=== PATIENT | female | born 1980 | race Caucasian/White ===

== ENCOUNTER 2020-03-30 14:31 | Outpatient (CLI) | payer BC, SELFPAY ==
--- NOTE | ~2020-03-30 | XR_ITS ---
EXAMINATION: XR lg joint inject/asp w image DATE: 03/30/2020 16:04 INDICATION: Left ankle arthritis TECHNIQUE: A time-out was performed to verify the patient's name, date of , and procedure to b e performed. The procedure including the risks, benefits, and alternatives was discussed with the pat ient. Risks discussed included bleeding and infection. The patient understood the risks and agreed to proceed. The skin overlying the left ankle joint was prepped and draped in usual sterile fashion. Anesthetic was administered with 1% lidocaine subcutaneously. A 22 G needle was advanced under fluor oscopic guidance into the joint. Injection of 0.6 mL of Omnipaque 240 confirmed intra-articular posi tion of the needle. Subsequently, injectate consisting of 4 mL of a 1:1 mixture of 0.5% bupivacaine: 40 mg/mL Depo-Medrol for a total dosage of 80 mg Depo-Medrol was instilled. Washout of contrast and widening of the joint space was seen confirming intra-articular administration. The needle was remove d and the entry site was cleaned and dressed. There were no immediate complications. Fluoroscopy exp osure time was 0.2 minutes. The total number of images was 3. FINDINGS: Real-time fluoroscopy demonstrates the needle in the left tibiotalar joint. Patient's pain prior to procedure:4.5/10. Patient's pain following the procedure: 6/10. IMPRESSION: 1. Successful left ankle joint injection of local anesthetic and steroid with slight increase in the patient's presenting pain. Reviewed, dictated and finalized at location A. IMPRESSION: 1. Successful left ankle joint injection of local anesthetic and steroid with s light increase in the patient's presenting pain.
== END 2020-03-30 14:32 | disposition home or self-care (01) ==
LOC: CHSIMG 14:34
PROVIDERS: PCP Family Medicine; Visit Provider Orthopaedic Surgery
DX: M19.172 Post-traumatic osteoarthritis, left ankle and foot (principal)
CPT/HCPCS: 20610; 77002; J1030; Q9965

== ENCOUNTER 2020-08-06 08:22 | Outpatient (CLI) | payer BC, SELFPAY ==
--- NOTE | ~2020-08-06 | XR_ITS ---
XR ankle LT min 3V DATE: 08/06/2020 08:40 INDICATION: Ankle and foot pain TECHNIQUE: 3 weightbearing views COMPARISON: There is joint space narrowing consistent with osteoarthritis at the tibiotalar joint. No fracture or dislocation of the ankle or disruption of the ankle mortise is detected. FINDINGS: There is joint space narrowing consistent with osteoarthritis at the tibiotalar joint. No fracture or dislocation of the ankle or disruption of the ankle mortise is detected. 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
--- NOTE | ~2020-08-06 | XR_ITS ---
XR foot LT min 3V DATE: 08/06/2020 08:40 INDICATION: Left ankle and foot pain TECHNIQUE: 3 weightbearing views COMPARISON: None FINDINGS: There is joint space narrowing consistent with osteoarthritis at the tibiotalar joint. No fracture or dislocation, periosteal reaction or bone destruction. IMPRESSION: Tibiotalar osteoarthritis Reviewed, dictated and finalized at location A. IMPRESSION: Tibiotalar osteoarthritis
== END 2020-08-06 08:23 | disposition home or self-care (01) ==
PROVIDERS: PCP Family Medicine; Visit Provider Orthopaedic Surgery
DX: M25.572 Pain in left ankle and joints of left foot (principal); M79.672 Pain in left foot
CPT/HCPCS: 73610; 73630

== ENCOUNTER 2020-09-24 13:29 | Outpatient (CLI) | payer BC, SELFPAY ==
[2020-09-24 14:37] LABS: Influenza Control Valid (Valid); SARS-CoV-2 Ag Negative (Negative)
== END 2020-09-24 13:30 | disposition home or self-care (01) ==
LOC: CHSLAB 13:32
PROVIDERS: PCP Family Medicine; Visit Provider Family Medicine
DX: J00 Acute nasopharyngitis [common cold] (principal); Z20.828 Contact with and (suspected) exposure to other viral communicable diseases
CPT/HCPCS: 87081; 87426; 87804; 87880

== ENCOUNTER 2020-12-10 08:27 | Outpatient (CLI) | payer BC, SELFPAY ==
--- NOTE | ~2020-12-10 | XR_ITS ---
EXAMINATION: XR hand RT min 3V DATE: 12/10/2020 09:00 INDICATION: Pain and PD sized lump at the right fifth proximal phalanx TECHNIQUE: Posteroanterior, oblique and lateral views of the right hand were obtained. COMPARISON: None. FINDINGS: Alignment is normal. No fracture. Joint spaces are normal. No periosteal reaction, cortical erosion o r suspicious lytic or blastic bone lesions. Soft tissues are unremarkable. No abnormal masses, soft t issue calcification or radiopaque foreign bodies identified. IMPRESSION: 1. Negative right hand radiographs. Reviewed, dictated and finalized at location B. LE ARCHITECT
== END 2020-12-10 08:28 | disposition home or self-care (01) ==
PROVIDERS: PCP Family Medicine; Visit Provider Orthopaedic Surgery
DX: M79.641 Pain in right hand (principal)
CPT/HCPCS: 73130

== ENCOUNTER 2020-12-14 16:41 | Outpatient (CLI) | payer BC, SELFPAY ==
[2020-12-17 18:03] LABS: SARS-CoV-2 RNA PCR Negative
== END 2020-12-14 16:42 | disposition home or self-care (01) ==
LOC: CHSLAB 16:45
PROVIDERS: PCP Family Medicine; Visit Provider Orthopaedic Surgery
DX: R22.31 Localized swelling, mass and lump, right upper limb (principal); M12.572 Traumatic arthropathy, left ankle and foot; Z20.822 Contact with and (suspected) exposure to COVID-19
CPT/HCPCS: C9803; U0003; U0005

== ENCOUNTER 2020-12-20 00:35 | Day surgery (SDC) | payer BC, SELFPAY ==
[2020-12-12 15:00] VITALS: BMI 35.0
--- NOTE | 2020-12-19 13:33 | WPDANESEPPF ---
Anes - Initial Pre Proc Eval Procedure: Operation Date: 12/20/20 12:30 Proposed Procedures p Excision Mass Right Index Finger, - Daron Russell MD s Injection Left Ankle - Daron Russell MD Date/Time: 12/19/20 13:33 Surgeon: Daron Russell MD Pre Op Diagnosis: right index finger mass, left ankle arthritis Patient Data Age: 40 Gender: F Height: 1.57 m Weight: 87 kg Allergies Allergy/AdvReac Type Severity Reaction Status Date / Time morphine Allergy Mild Nausea and Verified 12/12/20 15:22 Vomiting, RASH pantoprazole Allergy Rash Verified 12/12/20 14:56 codeine AdvReac Mild Nausea and Verified 12/12/20 14:56 Vomiting oxycodone AdvReac Mild Headache Verified 12/12/20 14:56 Penicillins AdvReac Mild Nausea and Verified 12/12/20 14:56 Vomiting Home Medications Medication Instructions Recorded Confirmed Type alprazolam 0.5 mg PO TID PRN 12/12/20 12/12/20 History cholecalciferol (vitamin D3) 25 mcg PO DAILY 12/12/20 12/12/20 History [Vitamin D3] desogestrel-ethinyl estradiol 1 tablet PO DAILY 12/12/20 12/12/20 History [Velivet Triphasic Regimen (28)] famotidine 40 mg PO BID 12/12/20 12/12/20 History Patient hx anesthesia problems: none Family hx anesthesia problems: none PMFSH Past Medical History Medical History (Updated 12/19/20 @ 13:33 by Tarik Travis MD) Abdominal pain Anxiety Diarrhea GERD (gastroesophageal reflux disease) History of stomach ulcers IBS (irritable bowel syndrome) Mass of finger of right hand Obesity Traumatic arthritis of left ankle Unintentional weight loss Family History Family History Father Diabetes mellitus Family history of elevated blood lipids Acute myocardial infarction Grandparent Acute myocardial infarction Carcinoma of colon Family history of malignant neoplasm of breast Mother Family history of malignant neoplasm Other Family history of type 1 diabetes mellitus Hypertension Social History Social History Smoking packs per day: 1 Smoking cigarettes per day: 20.0 Years smoked: 15 Smoking pack-years: 15.00 Smoking end date: 04/11/04 Alcohol intake: current Substance use: never Living arrangements: with family Additional living arrangements comments: AND CHILD Spiritual care concerns: No Anes - Eval Final PreProcedure Day of Procedure 12/19/20 13:33 Patient weight: obese Heart: regular rate and rhythm Lungs: clear to auscultation and normal air movement Airway: Mallampati scale class II Neurological: alert and oriented Last oral intake: >/= 8 hours ASA classification: II Emergent: no Anesthetic plan: proceed Anesthesia type and monitoring: general GIVS Informed Consent: The patient's anesthetic plan and its attendant risks and benefits were discussed with the patient/family/POA. Questions were solicited and answers provided to the satisfaction of the patient/family/POA.
--- NOTE | 2020-12-20 07:19 | WPDHPUPDATE1 ---
History and Physical Update Update Date/Time: 12/20/20 07:19 History and Physical has been reviewed, including an updated exam of the patient. There are NO changes in the patient's condition. Covid test negative. Risks, benefits, and alternatives have been discussed and questions answered. Patient agrees to proceed with procedure.
[2020-12-20 11:00] VITALS: BP 139/78; PULSE 86; RESP 18; TEMP 36.8; O2SAT 99
[2020-12-20] MEDS: LACTATED RINGERS 1,000 ML 30 ML IV CONT ×2 (11:12→12:42)
[2020-12-20] MEDS: KETOROLAC 15 MG/ML VIAL (*BKC) IV PUSH (11:13)
[2020-12-20] MEDS: ACETAMINOPHEN 500 MG TABLET 1000 MG PO (11:13)
[2020-12-20] MEDS: ceFAZolin 2 GM/D5W 50 ML 2 GM/50 ML BAG IVPB (11:50)
[2020-12-20] MEDS: BUPIVACAINE HCL 0.5% PF 30 ML VIAL INFILTRATE (12:04)
[2020-12-20] MEDS: methylPREDNISolone ACETATE 40 MG/ML VIAL IM (12:16)
[2020-12-20 12:42] VITALS: BP 112/64; PULSE 99; RESP 15; O2SAT 100
--- NOTE | 2020-12-20 12:55 | P.OP_ITS ---
Procedure Note - Detailed Date of procedure: 12/20/20 Pre-op diagnosis: right index finger mass, left ankle arthritis Post-op diagnosis: same Procedure performed: Excision of mass right index finger, injection cortisone left ankle Description of procedure: Indications: Patient is a 40-year-old woman with a right index finger mass which is enlarging in size. 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 She desires operative removal. She also has a history of posttraumatic arthritis left ankle and would like to proceed with cortisone injection. What was done: Patient identified in the preoperative holding. Informed consent given. Operative extremity marked. Patient received intravenous antibiotics. Patient brought to the operating room where underwent general anesthetic by anesthesia team. Positioned supine on operating room table. Time-out performed confirming the patient, site of the surgery and the plan. Right hand prepped draped usual state sterile surgical fashion using ChloraPrep skin solution. Hand was exsanguinated and Esmarch was wrapped at the wrist for a tourniquet. Local anesthetic with 0.5% Marcaine plain in subcutaneous tissue. The v-shaped incision was then made at the flexion crease at the base of the index finger and extending over the mass with a 15 blade knife. Hemostasis controlled with bipolar. Blunt dissection around the mass which was located on the sheath of the flexor tendon. This was freed up from surrounding soft tissue and removed in unit. This was passed off as specimen. Inspection of the flexor tendon noted partial tear on the radial side of the flexor profundus. Four 0 Monocryl used to repair the partial tear. Wound thoroughly irrigated subcutaneous tissue repaired with 4 0 Monocryl interrupted suture and skin repaired with 4 nylon interrupted suture. Sterile dressing applied. Tourniquet released. Left ankle then addressed. Anterior portion sterilized with alcohol prep solution. 22 gauge needle used to penetrate the tibiotalar joint from the anteromedial aspect. Injection of 40 mg Depo-Medrol and 2 cc of 0.25% Marcaine plain. Sterile dressing applied. The patient was then woken from anesthesia, extubated and taken to the recovery room in stable condition. All sponge, needle, instrument counts were correct at the end of the case. Anesthesia: MAC Surgeon: Daron Russell MD Implementation Consultant: mri assistant Estimated blood loss (mL): 2 Tourniquet time (min): 30 Drains: No Packing: No Pathology: yes (Right index finger mass) Complications: None Disposition: PACU Findings: 3 mm round spherical mass on the sheath of the flexor tendon right index finger.
[2020-12-20 13:12] VITALS: BP 112/62; PULSE 100; RESP 15
[2020-12-20 13:30] VITALS: BP 127/67; PULSE 100; RESP 15
== END 2020-12-20 13:40 | disposition home or self-care (01) ==
PROVIDERS: PCP Family Medicine; Visit Provider Orthopaedic Surgery
PROC: (CPT 26160; principal; 2020-12-20 12:30)
PROC: (CPT 26160; 2020-12-20 12:30)
DX: M67.441 Ganglion, right hand (principal); M19.072 Primary osteoarthritis, left ankle and foot; R22.31 Localized swelling, mass and lump, right upper limb; F41.9 Anxiety disorder, unspecified; K21.9 Gastro-esophageal reflux disease without esophagitis; K58.9 Irritable bowel syndrome, unspecified; E66.9 Obesity, unspecified; Z68.35 Body mass index [BMI] 35.0-35.9, adult; F17.210 Nicotine dependence, cigarettes, uncomplicated
CPT/HCPCS: 26160; 20605; 88304; A9270; J0690; J1030; J1040; J1885; J2250; J2704; J3010; J7120

== ENCOUNTER 2021-03-20 17:37 | Outpatient (CLI) | payer BC, SELFPAY ==
[2021-03-20 18:42] LABS: SARS-CoV-2 RNA PCR Negative (Negative)
== END 2021-03-20 17:38 | disposition home or self-care (01) ==
LOC: CHSLAB 17:39
PROVIDERS: PCP Family Medicine; Visit Provider Family Medicine
DX: R11.10 Vomiting, unspecified (principal); R19.7 Diarrhea, unspecified; Z20.822 Contact with and (suspected) exposure to COVID-19
CPT/HCPCS: C9803; U0003; U0005

== ENCOUNTER 2021-04-01 12:21 | Outpatient (CLI) | payer BC, SELFPAY ==
--- NOTE | ~2021-04-01 | XR_ITS ---
EXAMINATION: XR md joint inject/asp w image DATE: 04/01/2021 13:19 INDICATION: Ankle arthritis with chronic pain TECHNIQUE: A time-out was performed to verify the patient's name, date of , and procedure to b e performed. The procedure including the risks, benefits, and alternatives was discussed with the pat ient. Risks discussed included bleeding and infection. The patient understood the risks and agreed to proceed. The skin overlying the left tibiotalar joint was prepped and draped in usual sterile fashi on. Anesthetic was administered with 1% lidocaine subcutaneously. A 22 G needle was advanced under fluoroscopic guidance into the joint. Injection of 1 mL of Omnipaque 240 confirmed intra-articular p osition of the needle. Subsequently, injectate consisting of 3 mL of a 2:1 mixture of 0.5% Marcaine: 80 mg/mL Depo-Medrol for a total dose of 80 mg Depo-Medrol was instilled. Washout of contrast was se en confirming intra-articular administration. The needle was removed and the entry site was cleaned a nd dressed. There were no immediate complications. Fluoroscopy exposure time was 0.2 minutes. The to dina number of images was 1. FINDINGS: Real-time fluoroscopy demonstrates the needle in the left tibiotalar joint. Patient's pain prior to procedure:04/20. Patient's pain following the procedure: 04/20. IMPRESSION: 1. Left tibiotalar joint injection of local anesthetic and steroid with no change in the patient's pr esenting pain. Reviewed, dictated and finalized at location A. IMPRESSION: 1. Left tibiotalar joint injection of local anesthetic and steroid with no stoddard ge in the patient's presenting pain.
== END 2021-04-01 12:22 | disposition home or self-care (01) ==
PROVIDERS: PCP Family Medicine; Visit Provider Orthopaedic Surgery
DX: M19.172 Post-traumatic osteoarthritis, left ankle and foot (principal)
CPT/HCPCS: 20605; 77002; J1040; Q9966

== ENCOUNTER 2021-09-17 09:31 | Outpatient (CLI) | payer BC, SELFPAY ==
[2021-09-17 10:31] LABS: SARS-CoV-2 RNA PCR Negative (Negative)
== END 2021-09-17 09:32 | disposition home or self-care (01) ==
LOC: CHSLAB 09:33
PROVIDERS: PCP Family Medicine; Visit Provider Family Medicine
DX: Z20.822 Contact with and (suspected) exposure to COVID-19 (principal)
CPT/HCPCS: C9803; U0003; U0005

== ENCOUNTER 2022-02-14 08:06 | Outpatient (CLI) | payer OTHER, SELFPAY ==
--- NOTE | ~2022-02-14 | XR_ITS ---
EXAMINATION: XR md joint inject/asp w image DATE: 02/14/2022 09:22 INDICATION: Left ankle arthritis TECHNIQUE: A time-out was performed to verify the patient's name, date of , and procedure to b e performed. The procedure including the risks, benefits, and alternatives was discussed with the pat ient. Risks discussed included bleeding and infection. The patient understood the risks and agreed to proceed. The skin overlying the anterior left ankle joint was prepped and draped in usual sterile f ashion. Anesthetic was administered with 1% lidocaine subcutaneously. A 25 G needle was advanced un sonia fluoroscopic guidance into the joint. Injection of 1 mL of Omnipaque 240 confirmed intra-articul ar position of the needle. Subsequently, injectate consisting of 4 mL of a 1:1 mixture of 0.5% bupiv acaine: 40 mg/mL Depo-Medrol for a total dosage of 80 mg Depo-Medrol was instilled. Washout of contra st was seen confirming intra-articular administration. The needle was removed and the entry site was cleaned and dressed. There were no immediate complications. Fluoroscopy exposure time was 0.2 minute s. The total number of images was 2. FINDINGS: Real-time fluoroscopy demonstrates the needle in the left tibiotalar joint. Patient's pain prior to procedure:04/20. Patient's pain following the procedure: 04/20. IMPRESSION: 1. Successful left ankle joint injection of local anesthetic and steroid with no change in the patien t's presenting pain. Reviewed, dictated and finalized at location A. IMPRESSION: 1. Successful left ankle joint injection of local anesthetic and steroid with n o change in the patient's presenting pain.
== END 2022-02-14 08:07 | disposition home or self-care (01) ==
LOC: CHSIMG 08:11
PROVIDERS: PCP Family Medicine; Visit Provider Orthopaedic Surgery
DX: M13.872 Other specified arthritis, left ankle and foot (principal)
CPT/HCPCS: 20605; 77002; J1030; Q9965

== ENCOUNTER 2022-06-08 16:58 | Emergency (ER) | payer OTHER, SELFPAY ==
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
[2022-06-08 17:00] VITALS: BP 142/82; PULSE 99; RESP 20; TEMP 36.8; O2SAT 99
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
[2022-06-08] MEDS: traMADol HCL (*CRX) 50 MG TABLET 100 MG PO ×2 (17:39→19:31)
[2022-06-08 18:00] VITALS: BP 136/84; PULSE 84; RESP 16; TEMP 36.4; O2SAT 100
[2022-06-08] MEDS: TETANUS,DIPHTHERIA,AC PERTUSSIS ADULT 0.5 ML (ADACEL) IM (18:36)
[2022-06-08] MEDS: ONDANSETRON HCL ODT 4 MG TABLET PO (18:40)
[2022-06-08 19:20] LABS: Pregnancy On Board Control Positive; Urine Pregnancy Test Negative
[2022-06-08 19:40] VITALS: BP 122/80; PULSE 66; RESP 16; TEMP 36.6; O2SAT 99
== END 2022-06-08 19:46 | disposition home or self-care (01) ==
PROVIDERS: Emergency Provider Family Medicine; PCP Family Medicine
DX: S52.502A Unspecified fracture of the lower end of left radius, initial encounter for closed fracture (principal); V86.99XA Unspecified occupant of other special all-terrain or other off-road motor vehicle injured in nontraffic accident, initial encounter
CPT/HCPCS: 29105; 70450; 70486; 72125; 73030; 73080; 73130; 73560; 73610; 81025; 90471; 90715; 99284; A4565; A9270

== ENCOUNTER 2022-06-12 01:31 | Day surgery (SDC) | payer OTHER, BC, SELFPAY ==
[2022-06-11 14:27] VITALS: BMI 36.6
--- NOTE | 2022-06-11 14:37 | PC.NURSE ---
Report to the Outpatient Waiting Room, entrance under the green pavilion located off [facility], at time 0930 on date 06/12/22. OR Time: 1130. - You and your visitor will be asked to self-screen and do not enter if you have any COVID symptoms. - Only one visitor and NO children visitors are allowed at this time. - The patient visitor is requested to leave or wait in car when not with patient due to restrictions. - A mask is required within the hospital. Patients may have clear liquids (water, carbonated beverages, clear teas, apple juice) until 3 hours prior to surgery with a maximum of 20 ounces. - No food from midnight until time of surgery Take the following medications with a SIP of water the morning of surgery: XANAX, PAIN PILL (IF NEEDED) Medications to discontinue per physician: N/A Date to take last dose: N/A Please no make-up, nail arabic, hairspray, perfume, deodorant, or body powder the day of surgery. No jewelry (including any body piercings) or valuables the day of surgery, leave them at home. Please take a shower or bath the night before, or the morning of, surgery with an antibacterial soap. Wear comfortable, loose fitting clothing. - Jewelry must be removed prior to entering the operating room. Rings and piercings that are not removed may be cut off. - The hospital will not accept responsibility for valuables. - Please leave all valuables, including medications, at home the day of surgery. If you are going home after surgery, a licensed hazmat cdl driver must drive you home. - NO public transportation without another adult. - We recommend that an adult stay with you for 24 hours following discharge. - We also recommend that you do not drive, make important decision, drink alcoholic beverages, or take any drugs that were not prescribed by your health care provider for at least 24 hours after your discharge time. Follow any additional instructions given to you from your surgeon. If you or anyone in your household have experienced Covid symptoms in the past week, please notify your surgeon or the nurse liaison at the phone number below for possible testing. Telephone instructions given to PT - JARED ALVARENGA and asked if any additional questions and then verbalized understanding. Patient advised to call surgeon office or pre surgery nurse liaison [phone] if any additional questions.
[2022-06-12] VITALS (11 sets, daily range): BP systolic 117–142; BP diastolic 63–99; PULSE 70–98; RESP 12–19; TEMP 36.2–36.4; O2SAT 98–100; BMI 36.2
--- NOTE | ~2022-06-12 | XR_ITS ---
XR surgery orthopedic DATE: 06/12/2022 12:14 INDICATION: Left wrist pinning TECHNIQUE: 5 spot C-arm images 44 seconds fluoroscopy time 6.6334 cGy cm 2 total DAP COMPARISON: 06/11/2022 left wrist FINDINGS: 3 K wires are placed into the distal radius, 2 extending proximally through the radial styl oid process obliquely medially, 1 extending distally obliquely through the distal radial shaft into t he very distal medial aspect of the radius. There is near-anatomic position and alignment of the comminuted intra-articular radial fracture, with mild dorsal inclination of the distal radial and annular surface. IMPRESSION: K wire fixation of comminuted intra-articular fracture distal radius Reviewed, dictated and finalized at [facility]. Reviewed, dictated and finalized at location B. IMPRESSION: K wire fixation of comminuted intra-articular fracture distal radiu s
--- NOTE | 2022-06-12 07:13 | WPDHPUPDATE1 ---
History and Physical Update Update Date/Time: 06/12/22 07:13 History and Physical has been reviewed, including an updated exam of the patient. There are NO changes in the patient's condition. Risks, benefits, and alternatives have been discussed and questions answered. Patient agrees to proceed with procedure.
--- NOTE | 2022-06-12 09:57 | ECG_ITS ---
Measurements Intervals [place] Rate: 88 P: 49 NH: 156 QRS: -7 QRSD: 89 T: 41 QT: 339 QTc: 411 Interpretive Statements SINUS RHYTHM LOW QRS VOLTAGE IN PRECORDIAL LEADS LEFT VENTRICULAR HYPERTROPHY BASELINE ARTIFACT- II, III, AVR, AVL, AVF, V1-V6 BORDERLINE ECG NO PREVIOUS ECG AVAILABLE FOR COMPARISON Electronically Signed On 06-12-2022 12:00:45 CDT by Mars Calabrese D.O.
[2022-06-12] MEDS: ACETAMINOPHEN 500 MG TABLET 1000 MG PO (10:46)
[2022-06-12] MEDS: LACTATED RINGERS 1,000 ML 30 ML IV CONT ×2 (10:55→12:57)
[2022-06-12] MEDS: fentaNYL CITRATE INJ (*CRX) 100 MCG/2 ML VIAL 50 MCG IV PUSH (11:02)
--- NOTE | 2022-06-12 11:10 | SUR.PREOP ---
1110- Notified Dr. Russell patient unable to receive NSAID's. Toradol not given to patient and MD aware.
[2022-06-12] MEDS: SCOPOLAMINE 1.5 MG PATCH TRANSDERM ×2 (11:16→13:29)
--- NOTE | 2022-06-12 11:20 | SUR.PREOP ---
1120- Patient's splint removed in pre op room. Shaving deferred due to pain control.
[2022-06-12] MEDS: ceFAZolin 2 GM/D5W 50 ML 2 GM/50 ML BAG IVPB (11:27)
--- NOTE | 2022-06-12 12:25 | W.PM.PROC2 ---
Procedure Note - Detailed Date of Procedure 06/12/22 Pre-op Diagnosis left wrist fracture Post-op Diagnosis Same Procedure Performed Close reduction left distal radius fracture with percutaneous pin fixation. 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 Distal radius fracture with comminution and intra-articular extension. Presents for operative treatment. She has declined open reduction internal fixation but is consented for closed reduction with percutaneous pin fixation. Findings Comminuted intra-articular distal radius fracture. Description of Procedure Indications: Patient is a 42-year-old woman who injured her left wrist from a 4 eason accident. Presents for reduction. She has declined internal fixation due to previous problem she had with other internal fixation but has consented to have percutaneous pin fixation. What was done: Patient identified in the preoperative holding. Informed consent given. Operative extremity marked. Patient received intravenous antibiotics. Patient brought to the operating room where underwent general anesthetic by anesthesia team. Positioned supine on operating room table. Time-out performed confirming the patient, site of the surgery and the plan. Left wrist prepped draped usual sterile surgical fashion using ChloraPrep skin solution. Closed reduction performed and verified with image intensification. 0.062 in K-wire used and placed percutaneously. Two of these placed from the radial styloid across the fracture in a retrograde fashion. One pin placed from the radial diaphysis across the fracture antegrade fashion. Image intensification confirm reduction and placement of the pins. Wrist was gently taken through range of motion under fluoroscopy and noted to be stable. Pins were bent and cut outside the skin. Sterile dressing applied. The patient was then woken from anesthesia, extubated and taken to the recovery room in stable condition. All sponge, needle, instrument counts were correct at the end of the case. Implants 0.062 in K-wire x3 Estimated Blood Loss 1 Tourniquet Time 0 Drains No Packing No Pathology None sent Complications None Condition Stable Disposition PACU
[2022-06-12] MEDS: fentaNYL CITRATE INJ (*CRX) 100 MCG/2 ML VIAL 25 MCG IV PUSH ×4 (12:35→12:41)
[2022-06-12] MEDS: HYDROmorphone HCL INJ (*CRX) 1 MG/ML SYR IV PUSH ×2 (12:48→13:00)
[2022-06-12] MEDS: ONDANSETRON INJ 4 MG/2 ML VIAL IV PUSH (13:10)
[2022-06-12] MEDS: diphenhydrAMINE HCl INJ 50 MG/ML VIAL 25 MG IV PUSH (13:30)
== END 2022-06-12 14:53 | disposition home or self-care (01) ==
PROVIDERS: PCP Family Medicine; Visit Provider Orthopaedic Surgery
PROC: (CPT 25606; principal; 2022-06-12 11:30)
DX: S52.572A Other intraarticular fracture of lower end of left radius, initial encounter for closed fracture (principal); V86.55XA Driver of 3- or 4- wheeled all-terrain vehicle (ATV) injured in nontraffic accident, initial encounter; K21.9 Gastro-esophageal reflux disease without esophagitis; K58.9 Irritable bowel syndrome, unspecified
CPT/HCPCS: 25606; 93005; 99199; A9270; C1713; J0690; J1100; J1170; J1200; J2250; J2405; J2704; J3010; J7120

== ENCOUNTER 2022-08-04 08:20 | Outpatient (CLI) | payer OTHER, SELFPAY ==
--- NOTE | ~2022-08-04 | XR_ITS ---
EXAMINATION: XR wrist LT min 3V DATE: 08/04/2022 08:36 INDICATION: Left distal radius fracture follow-up TECHNIQUE: Posteroanterior, ulnar deviation, oblique, and lateral views of the left wrist were obtain ed. COMPARISON: 07/15/2022 FINDINGS: The cast and percutaneous pins have been removed. There is a healing fracture of the distal radius in essentially anatomic alignment. No additional fracture is identified. There is soft tissue swelling of the wrist. IMPRESSION: 1. Healing fracture of the distal radius with interval removal of the cast and percutaneous pins. Reviewed, dictated and finalized at location A.
== END 2022-08-04 08:21 | disposition home or self-care (01) ==
PROVIDERS: PCP Family Medicine; Visit Provider Orthopaedic Surgery
DX: Z47.89 Encounter for other orthopedic aftercare (principal)
CPT/HCPCS: 73110

== ENCOUNTER 2022-10-08 00:55 | Day surgery (SDC) | payer OTHER, SELFPAY ==
[2022-09-23 09:30] VITALS: BMI 35.9
--- NOTE | 2022-09-23 09:50 | PC.NURSE ---
Report to the Outpatient Waiting Room, entrance under the green pavilion located off [facility], at time __8:30AM on date __10/08/22 . Planned Procedure Time: __10:30AM . Time changes happen often and if your time is changed the preop area will call you the afternoon before. - You and your visitor will be asked to self-screen and do not enter if you have any COVID symptoms. - Only one visitor is requested with a max of two and NO children visitors are allowed at this time. - The patient visitor may be requested to leave or wait in car when not with patient due to distancing restrictions. - A mask is optional within the hospital. Patients may have clear liquids (water, carbonated beverages, clear teas, apple juice) until 3 hours prior to surgery with a maximum of 20 ounces. - No food from midnight until time of surgery Take the following medications with a SIP of water the morning of surgery: ___ALPRAZOLAM NEEDED, ALBUTEROL INHALER NEEDED Medications to discontinue per physician ____HOLD ALL VITAMINS/SUPPLEMENTS 3 DAYS PRE-OP Date to take last dose___10/04/22 Please no make-up, nail [place] islander, hairspray, perfume, deodorant, or body powder the day of surgery. No jewelry (including any body piercings) or valuables the day of surgery, leave them at home. Please take a shower or bath the night before, or the morning of, surgery with an antibacterial soap. Wear comfortable, loose fitting clothing. Children are encouraged to wear pajamas. - Jewelry must be removed prior to entering the operating room. Rings and piercings that are not removed may be cut off. - The hospital will not accept responsibility for valuables. - Please leave all valuables, including medications, at home the day of surgery. If you are going home after surgery, a licensed emergency medical technician/driver must drive you home. - NO public transportation without another adult if you receive anesthesia. - We recommend that an adult stay with you for 24 hours following discharge. - We also recommend that you do not drive, make important decision, drink alcoholic beverages, or take any drugs that were not prescribed by your health care provider for at least 24 hours after your discharge time. Follow any additional instructions given to you from your surgeon. If you or anyone in your household have experienced Covid symptoms in the past week, please notify your surgeon or the nurse liaison at the phone number below for possible testing. Telephone instructions given to _PATIENT___and asked if any additional questions and then verbalized understanding. Patient advised to call surgeon office or pre surgery nurse liaison [phone] if any additional questions.
[2022-10-08] VITALS (9 sets, daily range): BP systolic 116–158; BP diastolic 48–96; PULSE 65–102; RESP 12–20; TEMP 36.2–36.9; O2SAT 100
[2022-10-08] MEDS: ACETAMINOPHEN 500 MG TABLET 1000 MG PO (08:54)
[2022-10-08] MEDS: LACTATED RINGERS 1,000 ML 30 ML IV CONT ×3 (09:32→14:13)
[2022-10-08] MEDS: SCOPOLAMINE 1.5 MG PATCH TRANSDERM (10:19)
--- NOTE | 2022-10-08 10:27 | SUR.PREOP ---
Discussed delay with patient and family. Voices understanding.
--- NOTE | 2022-10-08 11:00 | WPDHPUPDATE1 ---
History and Physical Update Update Date/Time: 10/08/22 11:00 History and Physical has been reviewed, including an updated exam of the patient. There are NO changes in the patient's condition. Risks, benefits, and alternatives have been discussed and questions answered. Patient agrees to proceed with procedure.
--- NOTE | 2022-10-08 11:05 | WPDANESEPPF ---
Anes - Initial Pre Proc Eval Procedure: Operation Date: 10/08/22 10:30 Proposed Procedures p Laparoscopic Bilateral Salpingectomy - Se Cha MD Date/Time: 10/08/22 11:05 Surgeon: Se Cha MD Pre Op Diagnosis: Female Serizilization Patient Data Age: 42 Gender: F Height: 1.57 m Weight: 91.4 kg Last Vital Signs Temp 98.5 F 10/08/22 09:28 Pulse 102 H 10/08/22 09:28 Resp 16 10/08/22 09:28 BP 141/91 H 10/08/22 09:28 Pulse Ox 100 10/08/22 09:28 O2 Del Method Room Air 10/08/22 09:28 Allergies Allergy/AdvReac Type Severity Reaction Status Date / Time morphine Allergy Mild Nausea and Verified 10/08/22 08:52 Vomiting, RASH pantoprazole Allergy Rash, Verified 10/08/22 08:52 ITCHING oxycodone AdvReac Mild Nausea and Verified 10/08/22 08:52 Vomiting Penicillins AdvReac Mild Nausea and Verified 10/08/22 08:52 Vomiting NSAIDS (Non-Steroidal AdvReac Unknown Other Verified 10/08/22 08:52 Anti-Inflamma Home Medications Medication Instructions Recorded Confirmed Type alprazolam 0.5 mg tablet (Xanax) 0.5 mg PO TID PRN Anxiety 12/12/20 10/08/22 History desogestrel-ethinyl estradiol 0.1 1 tablet PO DAILY 12/12/20 10/08/22 History mg/0.125 mg/0.15 mg-25 mcg tablet (Velivet Triphasic Regimen (28)) esomeprazole magnesium 40 mg 40 mg PO DAILY 06/08/22 10/08/22 History capsule,delayed release albuterol sulfate 90 mcg/actuation 2 puff inhalation Q4-6H PRN Dyspnea 09/23/22 10/08/22 History aerosol inhaler famotidine 20 mg tablet 20 mg PO DAILY 09/23/22 10/08/22 History multivitamin 1 tablet PO DAILY 09/23/22 10/08/22 History vitamin C 45 mg-zinc citrate 3.75 2 tablet PO DAILY 09/23/22 10/08/22 History mg-elderberry 50 mg chewable tablet ([employer]) Patient hx anesthesia problems: post op nausea/vomiting Family hx anesthesia problems: none Results Review: All pre-operative results and documents have been reviewed as part of the pre-operative evaluation. [facility] Past Medical History Medical History Abdominal pain Anxiety Chronic pain of left ankle Diarrhea GERD (gastroesophageal reflux disease) History of stomach ulcers IBS (irritable bowel syndrome) Insomnia Left wrist fracture Mass of finger of right hand Obesity Traumatic arthritis of left ankle Unintentional weight loss Family History Family History Father Diabetes mellitus Family history of elevated blood lipids Acute myocardial infarction Grandparent Acute myocardial infarction Carcinoma of colon Family history of malignant neoplasm of breast Mother Family history of malignant neoplasm Other Family history of type 1 diabetes mellitus Hypertension Social History Social History Smoking packs per day: 1 Smoking cigarettes per day: 20.0 Years smoked: 20 Smoking pack-years: 20.00 Smoking status: Former smoker Tobacco type: cigarettes Smoking end date: 04/11/04 Alcohol intake: current Alcohol use details: 3/MONTH Substance use: never Substance use type: marijuana Living arrangements: with family Additional living arrangements comments: [facility] Gender identity (if verbalized by the patient): Female Spiritual care concerns: No Anes - Eval Final PreProcedure Day of Procedure 10/08/22 11:05 Patient weight: obese Heart: regular rate and rhythm Lungs: clear to auscultation Airway: Mallampati scale class II Neurological: alert and oriented Last oral intake: >/= 8 hours ASA classification: III Emergent: no Anesthetic plan: proceed Anesthesia type and monitoring: general ETT and standard monitoring Results Review: All pre-operative results and documents have been reviewed as part of the pre-operative evaluation. Informed Consent: The patient's janelles
[2022-10-08] MEDS: fentaNYL CITRATE INJ (*CRX) 100 MCG/2 ML VIAL 25 MCG IV PUSH ×6 (12:10→13:20)
[2022-10-08] MEDS: ONDANSETRON INJ 4 MG/2 ML VIAL IV PUSH (13:28)
[2022-10-08] MEDS: diphenhydrAMINE HCl INJ 50 MG/ML VIAL 25 MG IV PUSH (14:12)
--- NOTE | 2022-10-08 14:30 | W.PM.PROC2 ---
Procedure Note - Detailed Date of Procedure 10/08/22 Pre-op Diagnosis Female Serizilization Post-op Diagnosis Same Procedure Performed Laparoscopic bilateral salpingectomy Surgeon Se Cha MD Anesthesia General Indications Unwanted fertility Findings Normal pelvic anatomy Description of Procedure The patient was taken the operating room. She was prepped and draped in the dorsal lithotomy position after induction of general anesthesia. A 5 mm skin incision was made in the left upper quadrant of the abdominal skin. A 5 mm trocar was inserted the intra-abdominal cavity under direct visualization of the scope. Pneumoperitoneum was achieved. A 5 mm trocar was inserted in the left lower quadrant identical fashion. A 5 mm infraumbilical trocar was inserted in identical fashion as well. The bilateral fallopian tubes were removed. This was done by using a LigaSure cautery. The mesosalpinx adjacent to the tube was cauterized transected with LigaSure. This was initiated in the area the ovary and in a stepwise fashion moved medially to the area of the cornu of the uterus. Once there the fallopian tube was cauterized and transected. This was done in identical fashion on each side. The fallopian tubes were taken out through the left lower quadrant trocar site. The pneumoperitoneum was reduced. The trocars removed. The skin was closed with subcuticular 4 Monocryl and covered with Dermabond. She was taken to cover stable condition. Sponge lap and needle counts were correct x2. Estimated Blood Loss 5 Drains No Packing No Pathology Yes Complications No immediate complications Condition Stable Disposition PACU
--- NOTE | 2022-10-08 14:57 | SUR.PHASEII ---
2592 I forgot to give patient discharge paperwork, patient called and was not worried about it, we covered all the instructions together prior to discharge. 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
== END 2022-10-08 14:45 | disposition home or self-care (01) ==
PROVIDERS: PCP Family Medicine; Visit Provider Obstetrics & Gynecology
PROC: (CPT 49320; principal; 2022-10-08 10:30)
DX: Z30.2 Encounter for sterilization (principal); N83.8 Other noninflammatory disorders of ovary, fallopian tube and broad ligament; K21.9 Gastro-esophageal reflux disease without esophagitis; F41.9 Anxiety disorder, unspecified; Z87.891 Personal history of nicotine dependence; E66.9 Obesity, unspecified; Z68.36 Body mass index [BMI] 36.0-36.9, adult
CPT/HCPCS: 58661; 88302; A9270; J1100; J1200; J2250; J2405; J2704; J3010; J7120

== ENCOUNTER 2024-11-02 09:57 | Outpatient (CLI) | payer OTHER, SELFPAY ==
--- NOTE | ~2024-11-02 | MM_ITS ---
EXAMINATION: MM screening johnny BI w ivonne HISTORY: Screening TECHNIQUE: Craniocaudal and mediolateral oblique 3-D tomosynthesis images were obtained and synthetic 2-D images were generated. CAD analysis was submitted and interpreted. COMPARISON: No prior mammogram is available for comparison at this institution. BREAST PARENCHYMAL COMPOSITION: Not dense: There are scattered areas of fibroglandular density. FINDINGS: There is no evidence of suspicious mass, calcification, or architectural distortion to sugg est malignancy in either breast. There has been no suspicious interval change. IMPRESSION: 1. No mammographic evidence of malignancy. 2. Recommend routine screening mammography in one year. BI-RADS Category 1: Negative Reviewed, dictated and finalized at location A. 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
== END 2024-11-02 09:58 | disposition home or self-care (01) ==
PROVIDERS: PCP Family Medicine; Visit Provider Family Medicine
DX: Z12.31 Encounter for screening mammogram for malignant neoplasm of breast (principal)
CPT/HCPCS: 77063; 77067